=== PATIENT | female | born 1985 | race Caucasian/White ===

== ENCOUNTER 2019-11-19 12:15 | Emergency (ER) | payer OTHER, SELFPAY ==
[2019-11-19 12:29] VITALS: BP 152/82; PULSE 69; RESP 20; TEMP 36.7; O2SAT 100
--- NOTE | 2019-11-19 12:44 | ED.EAR ---
HPI - Ear Problem General Chief complaint: Ear Stated complaint: ear pain/sinus issues Time Seen by Provider: 11/19/19 12:44 Source: patient and RN notes reviewed Mode of arrival: ambulatory Limitations: no limitations History of Present Illness HPI Narrative: 34 year old female who presents to [facility] care with one week duration of left ear pain. Pain states that she did candle wicking last night and put sweet oil in her ear, states pain is 8/10 throbbing aching pain. Patient also states tenderness to area in front of ear and states that she thinks it may be related to her bad tooth which is noted on the left lower last molar which has noted hole in tooth. Patient has no gum swelling or redness noted, denies any difficulty with swallowing, no facial swelling noted. MD Complaint: ear pain and other (bad tooth lower left bottom) Location: left ear Duration: constant Severity: moderate Relieving factors: ear drops Exacerbating factors: chewing Discharge from ear: Reports no Associated symptoms ear: headache, external ear tenderness and tooth pain Treatment prior to arrival: attempt at ear wax removal and other (sweet oil, Ibuprofen) Related Data Allergies Allergy/AdvReac Type Severity Reaction Status Date / Time acetaminophen Allergy Verified 07/11/13 23:55 carisoprodol Allergy Verified 07/11/13 23:55 HYDROCODONE BIT Allergy Uncoded 07/11/13 23:55 Review of Systems Review of Systems: Narrative: CONSTITUTIONAL: Denies fever, chills, or sweats. EYES: Denies visual changes, redness, or discharge. ENT: Denies rhinorrhea, congestion, sore throat, positive for left ear otalgia. CARDIOVASCULAR: Denies chest pain, palpitations, or edema. RESPIRATORY: Denies cough or dyspnea. GASTROINTESTINAL: Denies abdominal pain, nausea, vomiting, or diarrhea. GENITOURINARY: Denies dysuria or hematuria. SKIN: Denies rash or itching. MUSCULOSKELETAL: Denies back pain, joint pain, or myalgia. NEUROLOGIC: Denies headache, numbness, or weakness, has history of migraines. PSYCHIATRIC: Denies anxiety or depression. All systems reviewed & are unremarkable except as noted in HPI and below PMFSH Past Medical History Medical History (Updated 11/20/19 @ 19:25 by Rosenda Rubio NP) Bulging lumbar disc Migraines Social History Social History (Updated 11/20/19 @ 19:20 by Rosenda Rubio NP) Smoking status: Current every day smoker Tobacco type: cigarettes Substance use type: marijuana Living arrangements: with family Gender identity (if verbalized by the patient): Female Comments At time of signature, agree with nursing past medical, surgical, social history. There is no relevant family history pertinent to the presenting complaint Exam Narrative: Exam Narrative: GENERAL: Well-appearing, well-nourished, and in no acute distress. HEAD: Normocephalic, atraumatic. EYES: PERRLA and EOMI. ENT: Nares clear, no rhinorrhea or epistaxis. Mucous membranes moist.TM's normal with no drainage present, left ear canal reddened. throat pink with no tonsil enlargement, dental caries left lower last molar with hole in center of tooth noted with some discomfort stated especially with eating. NECK: Supple.no lymphadenopathy CHEST: Clear to auscultation. No respiratory distress.SAO2 100% on room air HEART: Regular rate and rhythm. No murmur heard. Normal peripheral pulses. ABDOMEN: Soft, nontender, nondistended, normal active bowel sounds. EXTREMITIES: Normal range of motion. No edema. SKIN: Warm, dry, no rash. NEURO: No focal deficits. Alert and oriented x3. Course Vital Signs Vital signs: Vital Signs Temperature 36.7 C 11/19/19 12:29 Pulse Rate 69 11/19/19 12:29 Respiratory Rate 11/19/19 12:29 Blood Pressure 152/82 H 11/19/19 12:29 Pulse Oximetry 100 11/19/19 12:29 Temperature 36.7 C 11/19/19 12:29 Pulse Rate 69 11/19/19 12:29 Respiratory Rate 11/19/19 12:29 Blood Pressure 152/82 H 11/19/19 12:29 Pulse
== END 2019-11-19 13:07 | disposition home or self-care (01) ==
PROVIDERS: Emergency Provider Registered Nurse; PCP Nurse Practitioner Adult Health
DX: K02.9 Dental caries, unspecified (principal); H60.502 Unspecified acute noninfective otitis externa, left ear; F17.210 Nicotine dependence, cigarettes, uncomplicated
CPT/HCPCS: 99213; G0463

== ENCOUNTER 2021-10-08 17:08 | Emergency (ER) | payer OTHER, MEDICAID, SELFPAY ==
--- NOTE | ~2021-10-08 | CT_ITS ---
EXAMINATION: CT abdomen pelvis wo con DATE: 10/08/2021 18:39 INDICATION: Abdominal pain and vomiting TECHNIQUE: Computed tomography (CT) of the abdomen and pelvis was performed without intravenous contr ast. The dose-length product (DLP) was 600.97 mGy-cm. Automated exposure control and iterative recons truction technique were employed. COMPARISON: None FINDINGS: Minimal dependent atelectasis is present in the lung bases. The heart size is normal. Withi n the limitations of noncontrast examination, the liver, spleen, pancreas, gallbladder, and adrenal g lands are normal. There is a 6 mm nonobstructing stone of the left kidney. The right kidney is unrema rkable. No pathologically enlarged abdominal or pelvic lymph nodes are identified. There is no free i ntraperitoneal gas or evidence of bowel obstruction. The appendix is normal. IMPRESSION: 1. No CT correlate for the patient's symptoms. 2. Nonobstructing left nephrolithiasis. Reviewed, dictated and finalized at location F.
[2021-10-08 17:12] VITALS: BP 152/107; PULSE 85; RESP 18; TEMP 36.7; O2SAT 100
[2021-10-08 17:30] LABS: Basophils Absolute Auto 0.1 K/mm3 (0.0-0.1); Basophils Percent Auto 0.7 % (0.2-1.2); Eosinophils Absolute Auto 0.1 K/mm3 (0-0.3); Eosinophils Percent Auto 0.5 % (0-4.4); Hematocrit 49.7 % (37.0-47.0); Hemoglobin 16.5 g/dL (12.0-15.0); Immature Granulocyte Absolute 0.06 K/mm3 (0.00-0.031); Immature Granulocyte Percent A 0.4 % (0-0.5); Lymphocytes Absolute Auto 3.52 K/mm3 (0.9-3.2); Lymphocytes Percent Auto 20.6 % (18.3-44.2); Mean Corpuscular HGB Conc 33.2 g/dl (32-36); Mean Corpuscular Hemoglobin 33.1 pg (26-34); Mean Corpuscular Volume 99.6 fl (80-100); Mean Platelet Volume 11.1 fl (7.4-10.4); Monocytes Absolute Auto 1.3 K/mm3 (0.1-0.6); Monocytes Percent Auto 7.8 % (2.6-8.5); Platelet Count Result 317 k/mm3 (150-375); Red Blood Count 4.99 M/mm3 (4.2-5.4); Red Cell Distribution Width 13.2 % (11.5-14.5); White Blood Count 17.1 K/mm3 (4.5-10.0)
[2021-10-08 17:31] LABS: Appearance Urine Slightly Cloudy (Clear); Bilirubin Urine Negative (Negative); Blood Urine Negative (Negative); Color Urine Yellow (Yellow); Glucose Urine UA Negative (Negative); Ketones Urine Negative (Negative); Leukocyte Esterase Ur Negative LEU/UL (Negative); Nitrate Urine Negative (Negative); Protein Urine Negative (Negative); Specific Grav Ur 1.025 (1.001-1.035); Urobilinogen Urine 0.2 mg/dL (<2.0); pH Urine 5.5 (5.0-9.0)
[2021-10-08 17:33] LABS: Add Urine Microscopic? NO
[2021-10-08 17:41] LABS: Alanine Aminotransferase 22 U/L (6-35); Albumin Level 4.3 g/dL (3.5-5.1); Alkaline Phosphatase 105 U/L (38-126); Anion Gap 7 mmol/L (8-16); Aspartate Amino Transferase 30 U/L (14-36); Bilirubin,Total 0.3 mg/dL (0.2-1.3); Blood Urea Nitrogen 6 mg/dL (7-17); Calcium 8.9 mg/dL (8.4-10.2); Carbon Dioxide 28 mmol/L (22-30); Chloride 105 mmol/L (98-107); Estimated CRCL calculation 70 ml/min; Estimated Glomerular Filt Rate > 60; Glucose 103 mg/dL (65-110); Lipase 51 U/L (23-300); Potassium 3.2 mmol/L (3.4-5.0); Sodium 140 mmol/L (137-145)
[2021-10-08 17:51] LABS: Pregnancy On Board Control Positive; Urine Pregnancy Test Negative
[2021-10-08] MEDS: SODIUM CHLORIDE 0.9% IV 1,000 ML 999 ML IV CONT ×2 (18:43→20:36)
[2021-10-08] MEDS: ONDANSETRON INJ 4 MG/2 ML VIAL IV PUSH (18:44)
[2021-10-08] MEDS: FAMOTIDINE 20 MG/2 ML VIAL IV PUSH (18:44)
[2021-10-08 18:48] VITALS: BP 155/99; PULSE 76; RESP 18; O2SAT 99
--- NOTE | 2021-10-08 19:16 | ED.NAVMDI ---
HPI - Nausea/Vomiting/Diarrhea General Chief complaint: Nausea/Vomiting/Diarrhea Stated complaint: N/V x 3 months Time Seen by Provider: 10/08/21 18:11 Source: patient Mode of arrival: ambulatory Limitations: no limitations History of Present Illness HPI Narrative: This is a 36-year-old female that presents to the emergency department for diarrhea ongoing for the last 3 months. Associated with intermittent abdominal cramping. Reports recently she has been vomiting almost daily as well. Reports she has seen a GI doctor in the past and was diagnosed with IBS. She tried to make an appointment with her primary provider, but was unable to get in until November. Denies fever, hematochezia, or dysuria. Related Data Allergies Allergy/AdvReac Type Severity Reaction Status Date / Time carisoprodol Allergy Hives Verified 10/08/21 17:18 Review of Systems Review of Systems: CONSTITUTIONAL: Denies fever GASTROINTESTINAL: Reports abdominal pain, nausea, vomiting, and diarrhea. GENITOURINARY: Denies dysuria or hematuria. All systems reviewed & are unremarkable except as noted in HPI and below PMFSH Past Medical History Medical History (Updated 10/08/21 @ 20:54 by Juli Hamilton PA-C) Bulging lumbar disc Migraines Social History Social History (System 11/30/20 @ 13:32 by Favian Gillespie) Smoking status: Current every day smoker Tobacco type: cigarettes Substance use type: marijuana Gender identity (if verbalized by the patient): Female Exam Narrative: GENERAL: Well-appearing, well-nourished, and in no acute distress. HEAD: Normocephalic, atraumatic. EYES: EOMI. CHEST: Clear to auscultation. No respiratory distress. No wheezes rales or rhonchi HEART: Regular rate and rhythm. No murmur heard. Normal peripheral pulses. ABDOMEN: Soft, nontender, nondistended, normal active bowel sounds. EXTREMITIES: Normal range of motion. No edema. SKIN: Warm, dry, no rash. NEURO: No focal deficits. Alert and oriented x3. PSYCH: Normal mood and affect Course Vital Signs Vital signs: Vital Signs Temperature 98.1 F 10/08/21 17:12 Pulse Rate 85 10/08/21 17:12 Respiratory Rate 18 10/08/21 17:12 Blood Pressure 152/107 H 10/08/21 17:12 Pulse Oximetry 100 05/31/22 17:12 Oxygen Delivery Room Air 10/08/21 17:12 Temperature 98.1 F 10/08/21 17:12 Pulse Rate 76 10/08/21 18:48 Respiratory Rate 18 10/08/21 18:48 Blood Pressure 155/99 H 10/08/21 18:48 Pulse Oximetry 99 10/08/21 18:48 Oxygen Delivery Room Air 10/08/21 17:12 MDM - Nausea/Vomiting/Diarrhea MDM Narrative Medical decision making narrative: Patient presents to the emergency department for URI symptoms ongoing over the last couple of months. Reporting abdominal cramping and diarrhea. She is afebrile and nontoxic-appearing. Her vitals are stable. CBC with leukocytosis to 17.1. Also shows hemoconcentration. Metabolic panel with mild hypokalemia. Patient hydrated in the ED and given dose of potassium. UA without evidence of infection. test is negative. CT scan of the abdomen pelvis is without acute findings. Patient was updated on case findings. Will be given GI for follow-up for ongoing symptoms. She is stable and felt appropriate for further outpatient evaluation. She was given warnings to return to the ER Lab Data Attestation: I reviewed the patient's lab results. Result diagrams: 10/08/21 17:19 10/08/21 17:19 Labs: Lab Results 10/08/21 10/08/21 10/08/21 Range/Units 17:19 17:19 17:19 WBC 17.1 H (4.5-10.0) K/mm3 RBC 4.99 (4.2-5.4) M/mm3 Hgb 16.5 H (12.0-15.0) g/dL Hct 49.7 H (37.0-47.0) % MCV 99.6 (80-100) fl MCH 33.1 (26-34) pg MCHC 33.2 (32-36) g/dl RDW 13.2 (11.5-14.5) % Plt Count 317 (150-375) k/mm3 MPV 11.1 H (7.4-10.4) fl Immature Gran % (Auto) 0.4 (0-0.5) % Neut % (Auto) 70.0 (45.5-73.1) % Lymph % (Auto) 20.6 (18
[2021-10-08] MEDS: KETOROLAC 30 MG/ML VIAL (*BKC) IV PUSH (20:07)
[2021-10-08] MEDS: DICYCLOMINE HCL INJ 20 MG/2 ML VIAL IM (20:07)
[2021-10-08] MEDS: POTASSIUM CHLORIDE 20 MEQ TABLET 40 MEQ PO (20:58)
[2021-10-08 22:31] VITALS: BP 142/78; PULSE 80; RESP 18; O2SAT 99
== END 2021-10-08 22:32 | disposition home or self-care (01) ==
PROVIDERS: Emergency Provider Emergency Medicine; PCP Family Medicine
DX: E87.6 Hypokalemia (principal); R10.9 Unspecified abdominal pain; R19.7 Diarrhea, unspecified; F17.200 Nicotine dependence, unspecified, uncomplicated
CPT/HCPCS: 36415; 74176; 80053; 81003; 81025; 83690; 85025; 96361; 96372; 96374; 96375; 99284; A9270; J0131; J0500; J1885; J2405; J7030

== ENCOUNTER 2022-03-21 00:23 | Day surgery (SDC) | payer OTHER, SELFPAY ==
[2022-03-13 13:17] VITALS: BMI 32.3
[2022-03-21 12:52] VITALS: BP 139/75; PULSE 91; RESP 18; TEMP 36.2; O2SAT 99
[2022-03-21] MEDS: LACTATED RINGERS 1,000 ML 150 ML IV CONT (12:57)
--- NOTE | 2022-03-21 13:10 | WPDHPUPDATE1 ---
History and Physical Update Update Date/Time: 03/21/22 13:10 History and Physical has been reviewed, including an updated exam of the patient. There are NO changes in the patient's condition. Risks, benefits, and alternatives have been discussed and questions answered. Patient agrees to proceed with procedure.
--- NOTE | 2022-03-21 13:20 | WPDANESEPPF ---
Anes - Initial Pre Proc Eval Procedure: Operation Date: 03/21/22 14:00 Proposed Procedures p Esophagogastroduodenoscopy & Colonoscopy - Bird Mejia MD Date/Time: 03/21/22 13:20 Surgeon: Bird Mejia MD Pre Op Diagnosis: n/v, diarrhea, rectal bleeding Patient Data Age: 36 Gender: F Height: 1.55 m Weight: 77.5 kg Last Vital Signs Temp 36.2 C L 03/21/22 12:52 Pulse 91 03/21/22 12:52 Resp 18 03/21/22 12:52 BP 139/75 03/21/22 12:52 Pulse Ox 99 03/21/22 12:52 O2 Del Method Room Air 03/21/22 12:52 Allergies Allergy/AdvReac Type Severity Reaction Status Date / Time carisoprodol Allergy Hives Verified 03/21/22 12:46 Home Medications Medication Instructions Recorded Confirmed Type ondansetron 4 mg disintegrating 4 mg PO Q8H PRN nausea and 10/08/21 03/13/22 Rx tablet vomiting #10 tabs alprazolam 1 mg tablet 1 mg PO DAILY 02/18/22 03/13/22 History pantoprazole 40 mg tablet,delayed 40 mg PO QAM 02/18/22 03/13/22 History release topiramate 50 mg tablet 50 mg PO BID 02/18/22 03/13/22 History amlodipine 5 mg tablet 5 mg PO DAILY 03/13/22 03/13/22 History sumatriptan succinate 100 mg tablet 100 mg PO DAILY PRN Migraine 03/13/22 03/13/22 History Headache Patient hx anesthesia problems: none Family hx anesthesia problems: none Results Review: All pre-operative results and documents have been reviewed as part of the pre-operative evaluation. [facility] Past Medical History Medical History Bulging lumbar disc Cervical cancer Diarrhea Migraines Nausea and vomiting Rectal bleeding Surgical History Surgical History H/O: hysterectomy Social History Social History Years smoked: 14 Smoking status: Current every day smoker Tobacco type: cigarettes Alcohol intake: current Drinks per week: 4 Substance use: never Substance use type: does not use Living arrangements: with friend(s) Gender identity (if verbalized by the patient): Female Spiritual care concerns: No Anes - Eval Final PreProcedure Day of Procedure 03/21/22 13:20 Patient weight: obese Heart: regular rate and rhythm Lungs: clear to auscultation Airway: Mallampati scale class II Neurological: alert and oriented Last oral intake: >/= 8 hours ASA classification: III Emergent: no Anesthetic plan: proceed Anesthesia type and monitoring: general GIVS and standard monitoring Results Review: All pre-operative results and documents have been reviewed as part of the pre-operative evaluation. Informed Consent: The patient's anesthetic plan and its attendant risks and benefits were discussed with the patient/family/POA. Questions were solicited and answers provided to the satisfaction of the patient/family/POA.
--- NOTE | 2022-03-21 13:35 | SUR.OPER ---
EGD: [id number] COLON:[id number]
[2022-03-21 13:43] VITALS: BP 132/68; PULSE 87; RESP 18; O2SAT 99
[2022-03-21 13:53] VITALS: BP 129/85; PULSE 78; RESP 20; O2SAT 100
[2022-03-21 14:03] VITALS: BP 114/79; PULSE 80; RESP 20; O2SAT 99
== END 2022-03-21 14:24 | disposition home or self-care (01) ==
PROVIDERS: PCP Family Medicine; Visit Provider Internal Medicine Gastroenterology
PROC: 0DJ08ZZ Inspection of Upper Intestinal Tract, Via Natural or Artificial Opening Endoscopic (ICD-10-PCS; CPT 43235; principal; 2022-03-21 14:00)
DX: R19.7 Diarrhea, unspecified (principal); K64.8 Other hemorrhoids; K29.50 Unspecified chronic gastritis without bleeding; F17.210 Nicotine dependence, cigarettes, uncomplicated; E66.9 Obesity, unspecified; Z68.32 Body mass index [BMI] 32.0-32.9, adult
CPT/HCPCS: 45380; 43239; 87081; 88305; J2704; J7120

== ENCOUNTER 2023-03-31 15:17 | Outpatient (CLI) | payer OTHER, SELFPAY ==
--- NOTE | 2023-03-31 15:30 | ECG_ITS ---
Measurements Intervals [place] Rate: 101 P: 68 CA: 125 QRS: 49 QRSD: 91 T: -16 QT: 342 QTc: 443 Interpretive Statements SINUS TACHYCARDIA BORDERLINE ST-T WAVE ABNORMALITY- ANTEROLAT/INF LEADS BORDERLINE ECG COMPARED TO ECG 07/08/2018 12:35:34 [address] NOW PRESENT ST-T WAVE ABNORMALITY NOW PRESENT Electronically Signed On 03-31-2023 16:51:26 [employer] by Yung Lr D.O.
== END 2023-03-31 15:18 | disposition home or self-care (01) ==
LOC: ANHSURGERY 15:23
PROVIDERS: PCP Family Medicine; Visit Provider Surgery
DX: I10 Essential (primary) hypertension (principal); Z01.818 Encounter for other preprocedural examination; R94.31 Abnormal electrocardiogram [ECG] [EKG]
CPT/HCPCS: 93005

== ENCOUNTER 2023-04-06 01:05 | Day surgery (SDC) | payer OTHER, SELFPAY ==
[2023-03-26 11:20] VITALS: BMI 36.2
--- NOTE | 2023-03-26 11:26 | PC.NURSE ---
Report to the Outpatient Waiting Room, entrance under the green pavilion located off [facility], at time 6:00 on date 04/06/23. Planned Procedure Time: 7:30. Time changes happen often and if your time is changed the preop area will call you the afternoon before. - You and your visitor will be asked to self-screen and do not enter if you have any COVID symptoms. - A mask is optional within the hospital at this time. Patients may have clear liquids (water, carbonated beverages, clear teas, apple juice) until 3 hours prior to surgery with a maximum of 20 ounces. - No food from midnight until time of surgery Take the following medications with a SIP of water the morning of surgery: AMLODIPINE, ALPRAZOLAM DO NOT STOP ANY OF YOUR OTHER PRESCRIPTION MEDICATIONS PRIOR TO SURGERY ?EXCEPT THE FOLLOWING Medications to discontinue per physician: N/A Date to take last dose: N/A Please no make-up, nail croatian, hairspray, perfume, deodorant, or body powder the day of surgery. No jewelry (including any body piercings) or valuables the day of surgery, leave them at home. Please take a shower or bath the night before, or the morning of, surgery with an antibacterial soap. Wear comfortable, loose fitting clothing. - Jewelry must be removed prior to entering the operating room. Rings and piercings that are not removed may be cut off. - The hospital will not accept responsibility for valuables. - Please leave all valuables, including medications, at home the day of surgery. If you are going home after surgery, a licensed electric pile driver operator must drive you home. - NO public transportation without another adult if you receive anesthesia. - We recommend that an adult stay with you for 24 hours following discharge. - We also recommend that you do not drive, make important decision, drink alcoholic beverages, or take any drugs that were not prescribed by your health care provider for at least 24 hours after your discharge time. Follow any additional instructions given to you from your surgeon. If you or anyone in your household have experienced Covid symptoms in the past week, please notify your surgeon or the nurse liaison at the phone number below for possible testing. Telephone instructions given to PT - LORI CLARK and asked if any additional questions and then verbalized understanding. Patient advised to call surgeon office or pre surgery nurse liaison [phone] if any additional questions.
[2023-04-06] VITALS (7 sets, daily range): BP systolic 126–151; BP diastolic 65–83; PULSE 93–110; RESP 12–18; TEMP 36.7; O2SAT 97–100
[2023-04-06] MEDS: ACETAMINOPHEN 500 MG TABLET 1000 MG PO (06:52)
--- NOTE | 2023-04-06 06:56 | WPDANESEPPF ---
Anes - Initial Pre Proc Eval Procedure: Operation Date: 04/06/23 07:30 Proposed Procedures p Rectal Examination Under Anesthesia, Hemorrhoidectomy - Kenya Khan MD Date/Time: 04/06/23 06:56 Surgeon: Kenya Khan MD Pre Op Diagnosis: external hemorrhoids Patient Data Age: 37 Gender: F Height: 1.55 m Weight: 87 kg Allergies Allergy/AdvReac Type Severity Reaction Status Date / Time carisoprodol Allergy Intermediate Hives Verified 04/06/23 06:48 Home Medications Medication Instructions Recorded Confirmed Type alprazolam 1 mg tablet 1 mg PO DAILY 02/18/22 03/26/23 History amlodipine 5 mg tablet 5 mg PO DAILY 03/13/22 03/26/23 History sumatriptan succinate 100 mg tablet 100 mg PO DAILY PRN Migraine 03/13/22 03/26/23 History Headache folic acid 1 mg tablet 1 mg PO DAILY 02/11/23 03/26/23 History lisdexamfetamine 40 mg capsule 40 mg PO DAILY 02/11/23 03/26/23 History Patient hx anesthesia problems: none Family hx anesthesia problems: none Results Review: All pre-operative results and documents have been reviewed as part of the pre-operative evaluation. [facility] Past Medical History Medical History Anxiety Bulging lumbar disc Cervical cancer Diarrhea History of blood transfusion Hypertension Irritable bowel syndrome with diarrhea Migraines Nausea and vomiting Rectal bleeding RUQ pain Surgical History Surgical History H/O: hysterectomy Family History Family History Other Diabetes mellitus Hypertension Thyroid cancer Social History Social History Smoking packs per day: 0.5 Smoking cigarettes per day: 10.0 Years smoked: 15 Smoking pack-years: 7.50 Smoking status: Current every day smoker Tobacco type: cigarettes Alcohol intake: current Drinks per week: 2 Substance use: never Substance use type: does not use Living arrangements: with family Occupation/Education: occupation 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 Informed Consent: The patient's anesthetic plan and its attendant risks and benefits were discussed with the patient/family/POA. Questions were solicited and answers provided to the satisfaction of the patient/family/POA.
[2023-04-06] MEDS: KETOROLAC 15 MG/ML VIAL (*BKC) IV PUSH (07:04)
[2023-04-06] MEDS: LACTATED RINGERS 1,000 ML 30 ML IV CONT (07:08)
--- NOTE | 2023-04-06 07:12 | P.HP_ITS ---
H&P: HPI History of Present Illness Date/Time: 04/06/23 07:12 Chief Complaint: bleeding hemorrhoids Narrative: Kristal is a 37 y/o female who presents to the office at the request of Rosa Lorenzo for evaluation of internal and external hemorrhoids. She reports having constant pain from the hemorrhoids. She is having constant bleeding and pain from the area. She is being treated currently for chronic diarrhea which makes it hard to keep the area clean. She has had hemorrhoids for multiple years. Review of Systems Review of Systems: All systems reviewed & are unremarkable except as noted in HPI and below PMFSH Past Medical History Medical History Anxiety Bulging lumbar disc Cervical cancer Diarrhea History of blood transfusion Hypertension Irritable bowel syndrome with diarrhea Migraines Nausea and vomiting Rectal bleeding RUQ pain Surgical History Surgical History H/O: hysterectomy Family History Family History Other Diabetes mellitus Hypertension Thyroid cancer Social History Social History Smoking packs per day: 0.5 Smoking cigarettes per day: 10.0 Years smoked: 15 Smoking pack-years: 7.50 Smoking status: Current every day smoker Tobacco type: cigarettes Alcohol intake: current Drinks per week: 2 Substance use: never Substance use type: does not use Living arrangements: with family Occupation/Education: occupation 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 Gender identity (if verbalized by the patient): Female Spiritual care concerns: No Meds Home Medications and Allergies Home Medications Medication Instructions Recorded Confirmed Type alprazolam 1 mg tablet 1 mg PO DAILY 02/18/22 03/26/23 History amlodipine 5 mg tablet 5 mg PO DAILY 03/13/22 03/26/23 History sumatriptan succinate 100 mg tablet 100 mg PO DAILY PRN Migraine 03/13/22 03/26/23 History Headache folic acid 1 mg tablet 1 mg PO DAILY 02/11/23 03/26/23 History lisdexamfetamine 40 mg capsule 40 mg PO DAILY 02/11/23 03/26/23 History Allergies Allergy/AdvReac Type Severity Reaction Status Date / Time carisoprodol Allergy Intermediate Hives Verified 04/06/23 06:48 Vital Signs Vital Signs - 24 hr 04/06/23 07:05 Temperature 36.7 C Pulse Rate 108 H Respiratory Rate 16 Blood Pressure 151/80 H Pulse Oximetry 98 Oxygen Delivery Room Air Exam Const: General: cooperative, comfortable and no acute distress Resp: Auscultation: clear to auscultation bilaterally Cardio: Rate: regular rate Rhythm: regular rhythm GI: Inspection: normal to inspection Assessment and Plan Assessment and plan (1) External hemorrhoids: Code(s): K64.4 - Residual hemorrhoidal skin tags Status: Acute Assessment and Plan: due to worsening symptomatology despite conservative measures will proceed c EUA, hemorrhoidectomy in OR
--- NOTE | 2023-04-06 07:14 | WPDHPUPDATE1 ---
History and Physical Update Update Date/Time: 04/06/23 07:14 History and Physical has been reviewed, including an updated exam of the patient. There are NO changes in the patient's condition. Risks, benefits, and alternatives have been discussed and questions answered. Patient agrees to proceed with procedure.
[2023-04-06] MEDS: ceFAZolin 2 GM/D5W 50 ML 2 GM/50 ML BAG IVPB (07:17)
[2023-04-06] MEDS: BUPIVACAINE/EPINEPHRINE 0.5% 50 ML VIAL INFILTRATE (07:49)
[2023-04-06] MEDS: fentaNYL CITRATE INJ (*CRX) 100 MCG/2 ML VIAL 25 MCG IV PUSH ×2 (07:57→08:00)
--- NOTE | 2023-04-06 08:01 | P.OP_ITS ---
Procedure Note - Detailed Date of Procedure 04/06/23 Pre-op Diagnosis internal and external hemorrhoids Post-op Diagnosis Same Procedure Performed Exam under anesthesia, internal and external hemorrhoidectomy involving left lateral and right anterior positions Surgeon Kenya Khan MD Anesthesia General Indications 37 y/o F c multiple internal and external hemorrhoids c frequent flares causing pain, bleeding refractory to conservative measures. Findings multiple internal and external hemorrhoids predominately in L lateral and R anterior columns Description of Procedure The patient was taken to the operating room and placed in the modified lithotomy position. After adequate induction of general anesthesia, the patient was prepped and draped in the normal sterile fashion. A time-out was then done to verify the patient's identity, as well as the procedure being performed. I began by doing a digital exam. There was noted to be multiple internal and external hemorrhoids. At this point, a bilateral pudendal block was done. Then used the lone Star retractor to further evaluate the anal canal as well as rectum, other than the noted hemorrhoids no other pathology was noted. I then began excising the internal hemorrhoids using the hand-held LigaSure device. The hemorrhoids were noted to be in the left lateral and right anterior positions. Multiple hemorrhoids were excised using the LigaSure. The specimens will be sent to pathology for further review. Hemostasis was noted at all excision sites. I then excised multiple external hemorrhoids, again using the hand-held LigaSure device. All sites were noted to be hemostatic at the completion of excision. I then placed a piece of Gelfoam covered with lidocaine jelly into the rectal vault. The patient tolerated the procedure and was ex tubated in the operating room postop. She will be transferred to the recovery room in stable condition. Implants Gelfoam covered with lidocaine jelly in the rectal vault Estimated Blood Loss 5 Drains No Packing Yes Pathology Yes Complications No immediate complications Condition Stable Disposition PACU [facility] Billing Surgery - Charge Forward: Surgery Billing
--- NOTE | 2023-04-06 08:11 | SUR.PHASEI ---
0810: Simple mask removed.
[2023-04-06] MEDS: oxyCODONE HCL (*CRX) 5 MG TAB IR PO (08:41)
== END 2023-04-06 09:20 | disposition home or self-care (01) ==
PROVIDERS: PCP Family Medicine; Visit Provider Surgery
PROC: (CPT 46260; principal; 2023-04-06 07:30)
DX: K64.4 Residual hemorrhoidal skin tags (principal); K64.8 Other hemorrhoids; I10 Essential (primary) hypertension; F41.9 Anxiety disorder, unspecified; K58.0 Irritable bowel syndrome with diarrhea; G43.909 Migraine, unspecified, not intractable, without status migrainosus; F17.210 Nicotine dependence, cigarettes, uncomplicated; Z85.41 Personal history of malignant neoplasm of cervix uteri; Z80.8 Family history of malignant neoplasm of other organs or systems
CPT/HCPCS: 46260; 88304; 93005; A9270; J0690; J1100; J1885; J2250; J2405; J2704; J3010; J7120

== ENCOUNTER 2023-04-14 15:20 | Outpatient (CLI) | payer OTHER, SELFPAY ==
[2023-04-14 15:37] LABS: Basophils Absolute Auto 0.1 K/mm3 (0.0-0.1); Basophils Percent Auto 0.7 % (0.2-1.2); Eosinophils Absolute Auto 0.2 K/mm3 (0-0.3); Eosinophils Percent Auto 1.2 % (0-4.4); Hematocrit 42.6 % (37.0-47.0); Hemoglobin 14.2 g/dL (12.0-15.0); Immature Granulocyte Absolute 0.07 K/mm3 (0.00-0.031); Immature Granulocyte Percent A 0.5 % (0-0.5); Lymphocytes Absolute Auto 2.78 K/mm3 (0.9-3.2); Mean Corpuscular HGB Conc 33.3 g/dl (32-36); Mean Corpuscular Hemoglobin 34.9 pg (26-34); Mean Corpuscular Volume 104.7 fl (80-100); Mean Platelet Volume 10.8 fl (7.4-10.4); Monocytes Absolute Auto 1.3 K/mm3 (0.1-0.6); Monocytes Percent Auto 8.7 % (2.6-8.5); Neutrophils Absolute Auto 10.3 K/mm3 (1.3-6.7); Neutrophils Percent Auto 69.9 % (45.5-73.1); Platelet Count Result 266 k/mm3 (150-375); Red Blood Count 4.07 M/mm3 (4.2-5.4); Red Cell Distribution Width 13.9 % (11.5-14.5); White Blood Count 14.7 K/mm3 (4.5-10.0)
== END 2023-04-14 15:21 | disposition home or self-care (01) ==
LOC: ANHLAB 15:22
PROVIDERS: PCP Family Medicine; Visit Provider Surgery
DX: K62.5 Hemorrhage of anus and rectum (principal)
CPT/HCPCS: 36415; 85025